=== PATIENT | female | born 1945 | race Caucasian/White ===

== ENCOUNTER 2016-10-16 08:32 | Observation (INO) | payer OTHER ==
--- NOTE | 2016-10-16 08:47 | CPEKG ---
Heart Rate: 84 RR Interval: 714 P-R Interval: 176 QRSD Interval: 88 QT Interval: 384 QTC Interval: 454 P Magn[place]: 45 QRS Magnolia: -60 T Wave [place]: 48 EKG Severity - ABNORMAL ECG - EKG Impression: SINUS RHYTHM EKG Impression: PROBABLE LEFT ATRIAL ABNORMALITY EKG Impression: LEFT ANTERIOR FASCICULAR BLOCK Electronically Signed By: Natalie Pierre 16-Oct-2016 13:11:24
[2016-10-16 08:54] LABS: % IMMATURE GRANULYOCYTES 0.3 % (0.0-1.1); ABSOLUTE IMMATURE GRANULOCYTES 0.02 10^3/uL (0.00-0.10); ADD DIFF? NO; ADD MORPH? NO; ADD SCAN? NO; ATYPICAL LYMPHOCYTE FLAG 10 (0-99); FRAGMENT RBC FLAG 10 (0-99); HEMATOCRIT 43.9 % (38.0-47.0); HEMOGLOBIN 15.1 g/dL (12.6-16.3); LEFT SHIFT FLG 0 (0-99); LIPEMIA HEMOLYSIS FLAG 90 (0-99); MEAN CELL HEMOGLOBIN 30.3 pg (27.9-34.1); MEAN CELL HEMOGLOBIN CONCENTR. 34.4 g/dL (32.4-36.7); MEAN CELL VOLUME 88.2 fL (81.5-99.8); MEAN PLATELET VOLUME 9.9 fL (8.7-11.7); PLATELET CLUMPS FLAG 10 (0-99); PLATELET COUNT 323 10^3/uL (150-400); RED BLOOD CELL COUNT 4.98 10^6/uL (4.18-5.33)
[2016-10-16] MEDS ORDERED: ASPIRIN 81 MG CHEWABLE TAB ONE (09:18)
--- NOTE | 2016-10-16 09:21 | EDPHY ---
H & P Time Seen by Provider: 10/16/16 08:49 HPI/ROS: CHIEF COMPLAINT: Chest pain HISTORY OF PRESENT ILLNESS: 71-year-old female presents with chest pain. Onset chest tightness yesterday evening while she was swimming. The tightness lasted about 1 hour and then completely resolved when she stops swimming. Later in the evening she was doing yoga and the pain recurred, lasting approximately 30 minutes. She took ibuprofen and slept well. This morning she was sitting having breakfast when she developed recurrent chest tightness. The chest tightness lasted approximately 1 hour this morning. No chest pain now. No associated symptoms. No prior similar symptoms. Cardiac risk factors negative. Nonsmoker; no family history; no hypertension, diabetes or hypercholesterolemia. REVIEW OF SYSTEMS: Constitutional: No fever, no chills Eyes: No visual changes ENT: No sore throat Respiratory: No cough, no shortness of breath Gastrointestinal: No nausea, no vomiting, no abdominal pain Genitourinary: no dysuria Musculoskeletal: No leg pain or swelling Skin: No rash Neurological: No headache, no weakness Psychiatric: No depression Past Medical/Surgical History: Scoliosis Social History: Daily alcohol use Smoking Status: Never smoked Physical Exam: General Appearance: Alert, pleasant Eyes: Pupils equal and round, no conjunctival pallor or injection ENT, Mouth: Mucous membranes moist Neck: Normal inspection Respiratory: Lungs are clear to auscultation Cardiovascular: Regular rate and rhythm Gastrointestinal: Abdomen is soft and nontender Neurological: A&O, nonfocal, normal gait Skin: Warm and dry, no rash Extremities: Nontender, no pedal edema Psychiatric: Mood and affect normal Constitutional: Initial Vital Signs Temperature (C) 36.9 C 10/16/16 08:36 Heart Rate 91 10/16/16 08:36 Respiratory Rate 16 10/16/16 08:36 Blood Pressure 173/109 H 10/16/16 08:36 O2 Sat (%) 97 10/16/16 08:36 O2 Delivery Mode Room Air O2 (L/minute) 4 Allergies/Adverse Reactions: Penicillins Allergy (Verified 10/16/16 08:36) Sulfa (Sulfonamide Antibiotics) Allergy (Verified 10/16/16 08:36) Home Medications: Medication Instructions Recorded NK [No Known Home Meds] 10/16/16 Medical Decision Making - Diagnostics EKG Interpretation: EKG interpreted by me reveals normal sinus rhythm, rate 84, poor R-wave progression, LAFB Imaging: Chest x-ray independently reviewed by me reveals scoliosis, no acute disease. ED Course/Re-evaluation: This patient presents with exertional chest pain, now with chest pain at rest. Stat EKG reveals no evidence of ischemia or dysrhythmia. Aspirin 324 mg orally given. Clinical presentation concerning for acute coronary syndrome. quality assurance monitor body revealed normal sinus rhythm throughout. She remained asymptomatic throughout. The hospitalist was consulted for admission. Differential Diagnosis: Differential diagnosis includes though it is not limited to pneumonia, pneumothorax, pulmonary embolism, aortic dissection, pericarditis, acute coronary syndrome. - Data Points Laboratory Results: Laboratory Results 10/16/16 08:45 03 08:45 10/16/16 10/16/16 08:45 08:45 WBC 7.53 10^3/uL 10^3/uL (3.80-9.50) RBC 4.98 10^6/uL 10^6/uL (4.18-5.33) Hgb 15.1 g/dL g/dL (12.6-16.3) Hct 43.9 % % (38.0-47.0) MCV 88.2 fL fL (81.5-99.8) MCH 30.3 pg pg (27.9-34.1) MCHC 34.4 g/dL g/dL (32.4-36.7) RDW 13.0 % % (11.5-15.2) Plt Count 323 10^3/uL 10^3/uL (150-400) MPV 9.9 fL fL (8.7-11.7) Neut % (Auto) 73.5 % % (39.3-74.2) Lymph % (Auto) 18.2 % % (15.0-45.0) [place] % (Auto) 6.1 % % (4.5-13.0) Eos % (Auto) 1.1 % % (0.6-7.6) Baso % (Auto) 0.8 % % (0.3-1.7) Nucleat RBC Rel Count 0.0 % % (0.0-0.2) Absolute Neuts (auto) 5.54 10^3/uL 10^3/uL (1.70-6.50) Absolute Lymphs (auto) 1.37 10^3/uL 10^3/uL (1.00-3.00) Absolute Monos (auto) 0.46 10^3/uL 10^3/uL (0.30-0.80) Absolute Eos (auto) 0.08 10^3/uL 10^3/uL (0.03-0.40) Absolute Basos (auto) 0.06 10^3/uL 10^3/uL (0.02-0.10) Absolute Nucleated RBC 0.00 10^3/uL 10^3/uL (0-0.01) Immature Gran % 0.3 % % (0.0-1.1) Immature Gran # 0.02 10^3/uL 10^3/uL (0.00-0.10) Sodium 142 mEq/L mEq/L (134-144) Potassium 3.3 mEq/L L mEq/L (3.5-5.2) Chloride 103 mEq/L mEq/L (97-110) Carbon Dioxide 25 mEq/l mEq/l (22-31) Anion Gap 14 mEq/L mEq/L (8-16) BUN 13 mg/dL mg/dL (7-23) Creatinine 0.6 mg/dL mg/dL (0.6-1.0) Estimated GFR > 60 Glucose 152 mg/dL H mg/dL (70-100) Calcium 9.7 mg/dL mg/dL (8.5-10.4) Troponin I < 0.012 ng/mL ng/mL (0-0.034) NT-Pro-B Natriuret Pep 166 pg/mL H pg/mL (0-125) Departure - Departure [facility] In[facility] Clinical Impression: Chest pain Qualifiers: Chest pain type: precordial pain Qualified Code(s): R07.2 - Precordial pain Condition: Good
[2016-10-16 09:28] LABS: ANION GAP 14 mEq/L (8-16); CALCIUM 9.7 mg/dL (8.5-10.4); CARBON DIOXIDE 25 mEq/l (22-31); CHLORIDE 103 mEq/L (97-110); CREATININE 0.6 mg/dL (0.6-1.0); GLOMERULAR FILTRATION RATE > 60; GLUCOSE 152 mg/dL (70-100); POTASSIUM 3.3 mEq/L (3.5-5.2); SODIUM 142 mEq/L (134-144)
[2016-10-16 09:40] LABS: TROPONIN I < 0.012 ng/mL (0-0.034)
[2016-10-16 11:19] VITALS: RESP 16
[2016-10-16] MEDS ORDERED: ONDANSETRON DISINTEGRATING 4 MG TAB PO PRN (11:51)
[2016-10-16] MEDS ORDERED: ACETAMINOPHEN 325 MG TAB PO PRN (11:51)
--- NOTE | 2016-10-16 12:00 | PDGENHP ---
History and Physical - Chief Complaint chest pain - History of Present Illness 71 yo female p/w one day hx of exertional chest pain. Pain began while swimming. Lasted one hour then went away. She later had pain during Yoga class which was also exertional. Upon further questioning she reports eating a large meal before exercising. Her chest pain was exertional yesterday, but she currently has some discomfort currently. Her discomfort is mostly mid epigastric. Does not radiate to neck or hands. No SOB. She has a hx of esophageal strictures with dilatation and thinks her CP may be related to this. Denies current CP, SOB, palpitations, leg swelling, dizziness, N/V, Fever, constipation, diarrhea, diaphoresis No risk factor for Cardiac Disease. Denies DM, HLD, HTN, Family Hx. Non smoker. Exercises frequently.Denies Asthma. PMHx:GERD, Esophogeal strictures PSHx: esophogeal dilatation FMHx: negative for cardiac disease SocHx: social ETOH. No tobacco or illicits All: PCN, Sulf Meds: reviewed. History Information - Allergies/Home Medication List Allergies/Adverse Reactions: Penicillins Allergy (Verified 10/16/16 08:36) Sulfa (Sulfonamide Antibiotics) Allergy (Verified 10/16/16 08:36) Home Medications: NK [No Known Home Meds] 10/16/16 [Last Taken Unknown] I have personally reviewed and updated: family history, medical history, social history, surgical history - Past Medical History GERD - Surgical History Reports: no pertinent surgical hx - Social History Smoking Status: Never smoked Alcohol Use: Rarely Drug Use: None Review of Systems ROS: 10pt was reviewed & negative except for what was stated in HPI & below Physical Exam Temp Pulse Resp BP Pulse Ox 36.9 C 76 16 148/101 H 95 10/16/16 08:36 10/16/16 11:17 10/16/16 11:17 10/16/16 11:17 10/16/16 11:17 Constitutional: no apparent distress, appears nourished, not in pain Eyes: PERRL, anicteric sclera, EOMI Ears, Nose, Mouth, Throat: moist mucous membranes, hearing normal, ears appear normal, no oral mucosal ulcers Cardiovascular: regular rate and rhythym, no murmur, rub, or gallop, No edema Respiratory: no respiratory distress, no rales or rhonchi, clear to auscultation Gastrointestinal: normoactive bowel sounds, soft, non-tender abdomen, no palpable masses Skin: warm, normal color Neurologic: AAOx3, CN II-XII Intact Psychiatric: interacting appropriately, not anxious, not encephalopathic, thought process linear, No poor memory Lymph, Heme, Immunologic: No lymphadenopathy, No petechiae Lab Data & Imaging Review 10/16/16 08:45 10/16/16 08:45 WBC 7.53 10^3/uL (3.80-9.50) 10/16/16 08:45 RBC 4.98 10^6/uL (4.18-5.33) 10/16/16 08:45 Hgb 15.1 g/dL (12.6-16.3) 10/16/16 08:45 Hct 43.9 % (38.0-47.0) 10/16/16 08:45 MCV 88.2 fL (81.5-99.8) 10/16/16 08:45 MCH 30.3 pg (27.9-34.1) 10/16/16 08:45 MCHC 34.4 g/dL (32.4-36.7) 10/16/16 08:45 RDW 13.0 % (11.5-15.2) 10/16/16 08:45 Plt Count 323 10^3/uL (150-400) 10/16/16 08:45 MPV 9.9 fL (8.7-11.7) 10/16/16 08:45 Neut % (Auto) 73.5 % (39.3-74.2) 10/16/16 08:45 Lymph % (Auto) 18.2 % (15.0-45.0) 10/16/16 08:45 [place] % (Auto) 6.1 % (4.5-13.0) 10/16/16 08:45 Eos % (Auto) 1.1 % (0.6-7.6) 10/16/16 08:45 Baso % (Auto) 0.8 % (0.3-1.7) 10/16/16 08:45 Nucleat RBC Rel Count 0.0 % (0.0-0.2) 10/16/16 08:45 Absolute Neuts (auto) 5.54 10^3/uL (1.70-6.50) 10/16/16 08:45 Absolute Lymphs (auto) 1.37 10^3/uL (1.00-3.00) 10/16/16 08:45 Absolute Monos (auto) 0.46 10^3/uL (0.30-0.80) 10/16/16 08:45 Absolute Eos (auto) 0.08 10^3/uL (0.03-0.40) 10/16/16 08:45 Absolute Basos (auto) 0.06 10^3/uL (0.02-0.10) 10/16/16 08:45 Absolute Nucleated RBC 0.00 10^3/uL (0-0.01) 10/16/16 08:45 Immature Gran % 0.3 % (0.0-1.1) 10/16/16 08:45 Immature Gran # 0.02 10^3/uL (0.00-0.10) 10/16/16 08:45 Sodium 142 mEq/L (134-144) 10/16/16 08:45 Potassium 3.3 mEq/L (3.5-5.2) L 10/16/16 08:45 Chloride 103 mEq/L (97-110) 10/16/16 08:45 Carbon Dioxide 25 mEq/l (22-31) 10/16/16 08:45 Anion Gap 14 mEq/L (8-16) 10/16/16 08:45 BUN 13 mg/dL (7-23) 10/16/16 08:45 Creatinine 0.6 mg/dL (0.6-1.0) 10/16/16 08:45 Estimated GFR > 60 10/16/16 08:45 Glucose 152 mg/dL (70-100) H 10/16/16 08:45 Calcium 9.7 mg/dL (8.5-10.4) 10/16/16 08:45 Troponin I < 0.012 ng/mL (0-0.034) 10/16/16 08:45 NT-Pro-B Natriuret Pep 166 pg/mL (0-125) H 10/16/16 08:45 Visualized and Interpreted EKG results: Yes EKG Interpretation: Positive for: NS ST wave abnormalities. Negative for: ST elevation, ST depression Assessment & Plan Assessment: 71 yo female admitted for chest pain r/o #Chest Pain, exertional -Aspirin given in the E.D. -Negative Troponin x 1 -EKG unremarkable for acute event (personally reviewed) -Will admit EACU -Serial trop and EKG -Check for Risk factors (a1c, HTN, HLD) -exercise stress test tomorrow if rules out. She is considering getting this, but may change her mind. -We discussed obtaining a D-Dimer. My suspicion is very low and she does not want a CT scan. We will not get at this time #Question GERD in setting of hx of esophogeal strictures s/p dilatation. -will provide PPI and determine response #Hypokalemia: will provide replacement. Recheck in a.m. #Hx of Scoliosis #DVT proph: SCD's #Full Code
--- NOTE | 2016-10-16 13:45 | CPEKG ---
Heart Rate: 76 RR Interval: 789 P-R Interval: 192 QRSD Interval: 100 QT Interval: 412 QTC Interval: 464 P [place]: 51 QRS [place]: -38 T Wave [place]: 53 EKG Severity - OTHERWISE NORMAL ECG - EKG Impression: SINUS RHYTHM EKG Impression: INCOMPLETE RBBB EKG Impression: LEFT AXIS DEVIATION EKG Impression: COMPARED WITH PRIOR TRACING, AXIS IS LESS LEFTWARD Electronically Signed By: Abena Escobedo 16-Oct-2016 15:19:01
[2016-10-16] MEDS: PANTOPRAZOLE SODIUM 40 MG TAB PO SCH (14:39)
[2016-10-16] MEDS: POTASSIUM CL 20 MEQ PKT PO ONE ×2 (14:41→14:42)
[2016-10-17 05:47] LABS: ANION GAP 9 mEq/L (8-16); CALCIUM 9.3 mg/dL (8.5-10.4); CARBON DIOXIDE 25 mEq/l (22-31); CHLORIDE 105 mEq/L (97-110); CHOLESTEROL 188 mg/dL (140-220); CHOLESTEROL/HDL RATIO 2.47 RATIO (1.00-4.44); CREATININE 0.6 mg/dL (0.6-1.0); GLOMERULAR FILTRATION RATE > 60; GLUCOSE 109 mg/dL (70-100); HIGH DENSITY LIPOPROTEIN 76 mg/dL (40-85); LDL/HDL RATIO 1.22 RATIO (1.00-3.22); LOW DENSITY LIPOPROTEIN 93 mg/dL (80-100); NON-HIGH DENSITY LIPOPROTEIN 112 mg/dL (90-129); POTASSIUM 3.6 mEq/L (3.5-5.2); SODIUM 139 mEq/L (134-144); TRIGLYCERIDE 96 mg/dL (35-135); VERY LOW DENSITY LIPOPROTEINS 19 mg/dL (8-25)
[2016-10-17 09:13] VITALS: BP 154/93; PULSE 74; TEMP 97.9; O2SAT 97
--- NOTE | 2016-10-17 09:49 | PDDCSUM ---
Discharge Summary Discharge Summary: HPI/HOSPITAL COURSE: 71 yo female admitted for chest pain r/o. Please see below. #Chest Pain, exertional -not cardiac -negative troponin. negative EKG -We discussed the possibility of Stress test but given negative w/u and low risk , she has opted against it -no further chest pain -pain much improved with Protonix -RF: lipid panel unremarkable. A1C pending, but no hyperglycemia. No HTN -We discussed obtaining a D-Dimer. My suspicion is very low and she does not want a CT scan. We will not get at this time #GERD in setting of hx of esophogeal strictures s/p dilatation. -PPI BID x 30 days then decrease to daily #Hypokalemia: replaced #Hx of Scoliosis #DVT proph: SCD's while inpatient #Full Code F/U: with PCP in 1-2 weeks O: VSS NAD AAOX3 RRR CTA B S/NT/ND NO EDEMA AAOX3 MOOD APPROPRIATE LABS: TROPS NEGATIVE X 3 total time spent arranging discharge is 38 minutes
[2016-10-17] MEDS: PANTOPRAZOLE SODIUM 40 MG TAB PO SCH (10:20)
[2016-10-17 10:45] LABS: HEMOGLOBIN A1C 5.5 % (4.0-6.0)
== END 2016-10-17 10:25 | disposition home or self-care (01) ==
LOC: F1N 11:45
PROVIDERS: ADMIT Family Medicine; ATTEND Family Medicine
DX: R07.89 Other chest pain (principal); K21.9 Gastro-esophageal reflux disease without esophagitis; E87.6 Hypokalemia
CPT/HCPCS: 71020; 93005; 99285; G0378

== ENCOUNTER 2018-06-20 21:30 | Emergency (ER) | payer OTHER ==
--- NOTE | 2018-06-20 21:44 | EDPHY ---
H & P Smoking Status: Never smoked Time Seen by Provider: 06/20/18 21:33 HPI/ROS: CHIEF COMPLAINT: Food in the throat HISTORY OF PRESENT ILLNESS: This 73-year-old woman has a history of esophageal stricture with dilatation about [address] Corley at [facility]. Since then she has had intermittent trouble with swallowing but usually if she gets up and walks around food will go down. Tonight she was with friends and said she was concentrating less on her eating than usual because she was interacting with them. She was at dinner and about 7:00 p.m. Started feeling like she had salmon and Belgian vegetables caught in the middle of her esophagus. She was able to get up some of the vegetable but still feels like she can't swallow her saliva or water. No coughing and not short of breath. Symptoms moderate. Like previous obstruction. REVIEW OF SYSTEMS: A comprehensive 10 point review of systems is otherwise negative aside from elements mentioned in the history of present illness. PAST MEDICAL HISTORY: Esophageal stricture with dilatation, lisinopril for hypertension Social history: Used to live in [place], now lives in [place] General Appearance: Alert and conversant, cooperative. Eyes: No scleral icterus. ENT, Mouth: Normal pharynx without angioedema Respiratory: Normal respiratory effort, breath sounds equal, lungs are clear to auscultation. No wheezing. Cardiovascular: Regular rate and rhythm. Gastrointestinal: Abdomen is soft and non tender. Neurological: Alert and ambulatory. Skin: Warm and dry, no rashes. Musculoskeletal: Normal. Psychiatric: Not agitated. Emergency Department course/MDM: Patient tried to swallow carbonated beverage in the emergency department and spit up. She will require endoscopy tonight with previous history of dilatation of stricture and unable to swallow now. GI consultation with Dr. Melendez; 2203. She requested glucagon 1mg IV. (Lance Tanner) I received sign-out on this patient from Dr. Tanner at approximately 11:[address] Melendez came to the emergency department to see the patient, the patient had appeared to pass the food bolus after receiving glucagon and no longer was symptomatic. She was able to tolerate her secretions and fluids by mouth without any vomiting or difficulty. She will be discharged to home and will not require endoscopy. She was advised to take Maalox and clear liquids only for the next 12 hr. (Nicole Ocampo) Constitutional: Initial Vital Signs Temperature (C) 36.7 C 06/20/18 21:36 Heart Rate 100 06/20/18 21:36 Respiratory Rate 18 06/20/18 21:36 Blood Pressure 182/125 H 06/20/18 21:36 O2 Sat (%) 95 06/20/18 21:36 O2 Delivery Mode Room Air O2 (L/minute) 2 Allergies/Adverse Reactions: Penicillins Allergy (Verified 06/20/18 21:35) Sulfa (Sulfonamide Antibiotics) Allergy (Verified 06/20/18 21:35) Home Medications: Medication Instructions Recorded Pantoprazole Sodium [Protonix 40mg 40 mg PO BID #60 tab 10/17/16 (*)] - Data Points Medications Given: Discontinued Medications Glucagon (Glucagon) 1 mg IVP EDNOW ONE Stop: 06/20/18 22:05 Last Admin: 06/20/18 22:07 Dose: 1 mg Departure - Departure Disposition: Home, Routine, Self-Care Clinical Impression: Esophageal obstruction due to food impaction Condition: Good Instructions: Esophageal Foreign Body (ED), Esophageal Stricture (ED) Additional Instructions: You can try Maalox as needed for your symptoms. You should make sure to have only clear liquids for the next 12 hr. Then advance her diet slowly. Return to the ER if worse in any way. Referrals: MAYANK URENA [Other] - As per Instructions Chucky Corley MD [[facility] [place] Primary Care Provider] - As per Instructions
[2018-06-20] MEDS ORDERED: GLUCAGON HCL 1 MG VIAL IVP ONE (22:04)
[2018-06-20 23:19] VITALS: BP 151/108
--- NOTE | 2018-06-21 06:14 | GCON ---
DATE OF CONSULTATION: 06/20/2018 CHIEF COMPLAINT: Dysphagia. HISTORY OF PRESENT ILLNESS: I was asked to see this patient in consultation by Dr. Barney for chief co mplaint of dysphagia. The patient is a pleasant 73-year-old who has a history of intermittent dyspha jamaal requiring dilation approximately 5 years ago. She states dysphagia will occur occasionally, part icularly if she eats chicken or does not chew her food well. No GERD symptoms. This evening, she was having dinner with friends and felt acute foreign body meat impaction sensation after eating salmon and then vegetables. She was able to vomit up much the vegetables, but had a fe eling of foreign body sensation discomfort in her chest and was unable to swallow her saliva. She ca me to the emergency room. I requested glucagon to be given and now that I have seen her in the emergency room she is able to aguilar ndle her saliva well, no longer has a feeling of foreign body sensation, but does have some substerna l discomfort. She, however, was able to drink a glass of carbonated beverage without regurgitation a nd overall does feel better. ALLERGIES: Penicillin and sulfa. CURRENT MEDICATIONS: Lisinopril. PAST MEDICAL HISTORY: Hypertension, history of dysphagia, previously followed by Dr. Corley. SOCIAL HISTORY: She drinks alcohol daily. FAMILY HISTORY: Mother also had issues with esophageal strictures. REVIEW OF SYSTEMS: I performed a complete review of systems, which is negative except for the pertin ent positives and negatives noted above in HPI. PHYSICAL EXAM: She is afebrile at 36.7, BP 180/125, pulse 100. CONSTITUTIONAL: She is alert and or iented. EYES: No scleral icterus. OROPHARYNX: Normal. No oral lesions. CARDIOVASCULAR: Regular rate and rhythm. CHEST: Clear to auscultation. ABDOMEN: Soft, nontender. NEUROLOGICAL: Nonfocal . No skin lesions. There is no laboratory data. ASSESSMENT: Patient with intermittent dysphagia requiring dilation in the past; however, patient lloyd s not know the etiology of her dysphagia. She presents with acute meat impaction; however, I think w ith her vomiting and then glucagon that this is now cleared. She has no water brash. She is able to swallow her saliva well and was able to swallow a cup of carbonated beverage. I do not think that u rgent upper endoscopy is needed at this time. PLAN: 1. I have advised the patient to do clear liquids only for the next 12 hours and to advance her diet slowly and to avoid dry meats, breads, or large bites of food. 2. I have suggested Mylanta if needed for discomfort. I recommend she begin Prilosec daily. The pa see is to return home tomorrow and she should set up with her driver utility worker for upper endoscop y and elective dilation; however, if she is does feel recurrent symptoms such as foreign body sensati on or unable to swallow to return to the emergency room. /[id number]/MODL
== END 2018-06-20 23:20 | disposition home or self-care (01) ==
DX: T18.120A Food in esophagus causing compression of trachea, initial encounter (principal); K22.2 Esophageal obstruction; X58.XXXA Exposure to other specified factors, initial encounter; Y99.8 Other external cause status
CPT/HCPCS: 96374; 99284; J1610